=== PATIENT | male | born 1950 | race Caucasian/White ===

== ENCOUNTER 2023-12-05 07:28 | Outpatient (CLI) | payer MEDICARE, OTHER, SELFPAY ==
[2023-12-05] VITALS (9 sets, daily range): BP systolic 169–212; BP diastolic 81–99; PULSE 59–69; RESP 14–18; TEMP 36.2; O2SAT 96–100
--- NOTE | 2023-12-05 08:00 | DI.RAD.S_ITS ---
PROCEDURE: PAIN L/S TRANSFORAMINAL INJECT INDICATIONS: radiculopathy COMPARISON: None. FINDINGS: Fluoroscopic spot filming was performed to verify placement of spinal needles at the right L4-5 level(s), as labeled on the films. Appropriate location(s) of the needle tip(s) was confirmed by injection of iodinated contrast. IMPRESSION: Intra procedural examination demonstrating appropriate positions of the needles. Dictated by: Caio Smith M.D. on 12/05/2023 at 11:15 Approved by: Caio Smith M.D. on 12/05/2023 at 11:15
[2023-12-05] MEDS: MIDAZOLAM 2 MG/2 ML VIAL IV (08:03)
[2023-12-05] MEDS: iopamidoL 15 ML VIAL 3 ML INJ (08:07)
[2023-12-05] MEDS: DEXAMETHASONE 10 MG/ML VIAL INJ (08:07)
--- NOTE | 2023-12-05 15:17 | P.PCN_ITS ---
Date/Time/Diagnoses Date of procedure: 12/05/23 Time of procedure: 08:00 Procedure Notes Physician: Luis E Monaco Total Fluoroscopy time (seconds): 16 Total sedation minutes: 10 Procedure in detail & Post-procedure care: Right L4-5 Transforaminal Epidural Steroid Injection Indications: [place] is presenting for treatment of lumbar radiculopathy with low back and leg pain. Preoperative diagnosis: Lumbar radiculopathy Postoperative diagnosis: Same Focused Examination: Ax3 Mood and affect are normal Vital Signs: VSS ASA: 2 Consent: Following review of allergies and potential side effects/complications, including, but not necessarily limited to, infection, allergic reaction, local tissue breakdown, stroke, temporary or permanent nerve injury, paralysis, and possible , the patient indicated that they understood and agreed to proceed.? An informed consent document was signed by the patient, witnessed by a nurse and placed in the patient's chart.? Additionally, other treatment options including medications and physical therapy were reviewed with the patient. All questions were answered. Site was then marked. Anesthesia: After review of previous anesthetic history and IV conscious sedation, the patient was deemed safe to proceed with today's procedure with IV conscious sedation. IV sedation was accomplished with midazolam 2 mg administered by the RN after order by Dr. Monaco. Sedation was titrated to patient comfort during the course of the procedure. Patient remained responsive to all verbal commands. Position: Prone Monitoring: NIBP, Pulse oximetry, 3 lead EKG Needle used: 22G 5 inch spinal needle Contrast: Isovue 300M Injectate: 10 mg Dexamethasone mixed with 1% lidocaine 1 ml and normal saline 1 mL Technique: The skin was prepped with chloraprep and draped in a sterile fashion. Time out was performed as per protocol. Oxygen applied via NC. Skin and subcutaneous structures of the needle entry site were infiltrated with 3mL of lidocaine 1%. Under fluoroscopic guidance, using an ipsilateral oblique view,?a 22 gauge 5 inch needle was advanced to the base of the right L4?pedicle.? The needle was advanced to the superio-posterior aspect of the neural foramen under lateral view.? Oblique and AP views were rechecked. No paresthesias noted by the patient during needle placement. In AP view and utilizing real-time digital subtraction fluoroscopy, 2 ml contrast was slowly injected. Epidural spread was observed without evidence for intravascular nor intrathecal uptake. Contrast spread was seen craniocaudally. The above injectate was then administered without paresthesias and the needle was subsequently withdrawn. Band-Aids applied to injection sites. EBL: less than 1 ml Complications: None Post Procedure: Patient was taken to the recovery and monitored. The patient was provided a Pain Log to continue to record the patient's response to the target- specific procedure prior to the patient's follow-up visit with the referring physician. Patient was stable upon discharge. Detailed post procedure instructions were provided. Patient was asked to call in the event of worsening pain, fever, weakness, numbness or bladder or bowel incontinence.
== END 2023-12-05 08:33 | disposition home or self-care (01) ==
LOC: RAD 07:29
PROVIDERS: PCP Family Medicine; Referring Provider Anesthesiology; Visit Provider Anesthesiology
DX: M54.16 Radiculopathy, lumbar region (principal)
CPT/HCPCS: 64483; 99152; J1100; J2250

== ENCOUNTER → 2024-03-04 12:33 | Outpatient (CLI) | payer MEDICARE, OTHER, SELFPAY ==
--- NOTE | 2024-03-04 12:34 | DI.MRI.S_ITS ---
PROCEDURE: MR SHOULDER RT WO CON INDICATIONS: Right shoulder pain s/p fall TECHNIQUE: Noncontrast oblique coronal T2 fast spin echo with fat saturation, oblique sagittal T1 spin echo and T2 fast spin echo with fat saturation, axial T1 spin echo and T2 fast spin echo with fat saturation through the shoulder. COMPARISON: None. FINDINGS: Image quality: Excellent. Rotator cuff: There is full-thickness rupture of mid to posterior fibers of distal supraspinatus and anterior fibers of infraspinatus at their insertions on humeral head with up to 3.8 cm medial retraction of torn tendon fibers to the level of acromion. Anterior fibers of distal supraspinatus and mid to posterior fibers of distal infraspinatus show low to moderate grade articular surface partial-thickness tear. Low-grade intrasubstance partial-thickness tear involving distal subscapularis is seen. Sagittal images demonstrate no significant rotator cuff muscle atrophy. Bones and bursae: There is no acute fracture or dislocation. Moderate acromioclavicular joint osteoarthritic changes are seen with joint space narrowing and downward osteophyte formation. Mild to moderate glenohumeral joint osteoarthritic changes also noted. There is moderate amount of joint effusion and subacromial subdeltoid bursal fluid. No gross loose bodies. Capsule and soft tissues: There is signal abnormality and fraying of anterior inferior labrum at 4 to 6 o'clock position suggestive of anterior-inferior labral tear. long head of the biceps tendon demonstrates normal location and morphology. The rotator interval appears normal, without fibrosis. The coracohumeral ligament is normal in thickness. IMPRESSION: 1. Full-thickness rupture involving mid to posterior fibers of distal supraspinatus and anterior fibers of distal infraspinatus at their insertions on humeral head with up to 3.8 cm medial retraction of torn tendon fibers to the level of acromion. Most anterior fibers of distal supraspinatus and mid to posterior fibers of distal infraspinatus show moderate grade articular surface partial-thickness tear extending to musculotendinous junction. Low-grade intrasubstance partial-thickness tear involving distal subscapularis. No significant rotator cuff muscle atrophy. 2. Moderate acromioclavicular joint osteoarthritis and [id number] glenohumeral joint osteoarthritis. No fracture or dislocation. Moderate amount of joint effusion and subacromial subdeltoid bursal fluid. No gross loose bodies. 3. Suggestion of anterior-inferior labral tear at 4 to 6 o'clock position. Dictated by: Darryn Palafox M.D. on 03/04/2024 at 13:57 Approved by: Darryn Palafox M.D. on 03/04/2024 at 14:13
== END ==
PROVIDERS: PCP Family Medicine; Referring Provider Anesthesiology; Visit Provider Anesthesiology
DX: M75.121 Complete rotator cuff tear or rupture of right shoulder, not specified as traumatic (principal); M19.011 Primary osteoarthritis, right shoulder; M25.411 Effusion, right shoulder; M25.811 Other specified joint disorders, right shoulder; M25.511 Pain in right shoulder
CPT/HCPCS: 73221